=== PATIENT | female | born 1965 | race Asian ===

== ENCOUNTER 2017-10-21 12:34 | Emergency (ER) | payer BC ==
[~2017-10-21] VITALS: Ht 162.6 cm; Wt 61.2 kg
--- NOTE | 2017-10-21 13:54 | NUR ---
PT WAS EVALUATED BY DR PATRICK. PT WAS D/C TI HOME. D/C INSTRUCTIONS GIVEN TO THE PT.
[2017-10-21 13:55] VITALS: BP 128/79
== END 2017-10-21 13:56 | disposition home or self-care (01) ==
LOC: ER 12:34
DX: S50.11XA Contusion of right forearm, initial encounter (principal); W22.8XXA Striking against or struck by other objects, initial encounter; Y93.89 Activity, other specified; Y92.89 Other specified places as the place of occurrence of the external cause; Y99.8 Other external cause status
CPT/HCPCS: A4663